=== PATIENT | female | born 1950 | race Caucasian/White ===

== ENCOUNTER 2016-07-06 16:02 | Emergency (ER) | payer MEDICARE, OTHER ==
[~2016-07-06 16:02] MED LIST: /DULO30CA PO; /ESOM40CA PO; /RISE35TA PO; /WARF25TA OR; ACET65TA OR; AMIT10TA2 PO; COQ10 PO; Hydroxychloroquine PO; MAGN250T PO; Melatonin PO; PERC5TAB8 OR; SULF50TA PO; SUMA125TA PO; TYLENOL #3 PO; [UNRECOGNIZED DRUG - OTHER] PO; plaquenil
[2016-07-06] MEDS ORDERED: XANA0.25 PO (16:32)
[2016-07-06] MEDS ORDERED: LIPI10TA PO (16:32)
[2016-07-06] MEDS ORDERED: LIDO5DIS36 TD (16:32)
[2016-07-06] MEDS ORDERED: CALC600T57 PO (16:32)
[2016-07-06 17:24] LABS: BASO # 0.1 K/mm3 (0.0-0.2); BASO % 0.9 % (0.0-1.0); EOS # 0.2 K/mm3 (0.0-0.50); EOS % 1.5 % (0.0-3.0); LARGE UNSTAINED CELL # 0.2 K/mm3 (0.0-0.4); LARGE UNSTAINED CELL % 1.6 % (0.0-4.0); LYMPH % 19.9 % (24.0-44.0); MEAN CORPUSCULAR HEMOGLOBIN 28.6 pg (27.0-33.0); MEAN CORPUSCULAR HGB CONC 33.3 g/dl (32.0-36.5); MEAN CORPUSCULAR VOLUME 86.1 fl (80.0-96.0); MONO # 0.7 K/mm3 (0.0-0.8); MONO % 6.4 % (0.0-5.0); NEUTROPHILS # 7.2 K/mm3 (1.8-7.7); NEUTROPHILS % 69.7 % (36.0-66.0); PLATELET COUNT, AUTOMATED 300 k/mm3 (150-450); RED CELL DISTRIBUTION WIDTH 12.7 % (11.5-14.5); WHITE BLOOD COUNT 10.2 K/mm3 (4.0-10.0)
[2016-07-06 17:36] LABS: ANION GAP 7 MEQ/L (8-16); BLOOD UREA NITROGEN 14 MG/DL (7-18); CALCIUM LEVEL 8.9 MG/DL (8.8-10.2); CARBON DIOXIDE LEVEL 30 MEQ/L (21-32); CHLORIDE LEVEL 102 MEQ/L (98-107); CREATININE FOR GFR 0.95 MG/DL (0.55-1.02); GLOMERULAR FILTRATION RATE > 60.0 (>45); GLUCOSE, FASTING 108 MG/DL (80-110); SODIUM LEVEL 139 MEQ/L (136-145)
--- NOTE | 2016-07-06 18:27 | REP ---
Chest x-ray: Two views. History: Chest pain. Comparison study August 22, 2013. Findings: EKG monitoring electrodes overlie the chest. Heart is not enlarged. Pleural angles are sharp. There are orthopedic anchors in the right humeral head. Pulmonary vasculature is not increased. Impression: No active disease. Signed by Horacio Loaiza MD 07/06/2016 07:02 P
[2016-07-06 18:32] VITALS: BP 159/78
--- NOTE | 2016-07-07 19:50 | ECGEPIP ---
Stationary ECG Study [facility] - ED Test Date: 2016-07-06 Pat Name: MARY FELIZ Department: Room: - Gender: F Literacy Coordinator: rn : 1950 Requested By: Jasson Vaughan Order Number: [id number] Reading MD: Sandy Villalta Measurements Intervals [place] Rate: 86 P: 60 [place]: 175 QRS: -11 QRSD: 92 T: 47 QT: 368 QTc: 441 Interpretive Statements SINUS RHYTHM NSTTW ABNORMALITY NO PRIOR FOR COMPARISON Electronically Signed On 07-07-2016 19:49:58 EDT by Sandy Villalta
== END 2016-07-06 19:03 | disposition left against medical advice (07) ==
LOC: EDBD 16:02 → M ED 17:14
DX: R07.9 Chest pain, unspecified (principal)

== ENCOUNTER → 2017-01-07 | Outpatient (REF) | payer MEDICARE, OTHER ==
[~2017-01-07] MED LIST changes: +CALC600T57 PO; +LIDO5DIS41 TD; +LIPI10TA PO; +XANA0.25 PO
[2017-01-07 19:50] LABS: BLOOD UREA NITROGEN 13 MG/DL (7-18); CREATININE FOR GFR 0.97 MG/DL (0.55-1.02); GLOMERULAR FILTRATION RATE > 60.0 (>45)
== END ==
LOC: M LABDRAW1 16:52
PROVIDERS: ATTEND Orthopaedic Surgery
DX: M17.12 Unilateral primary osteoarthritis, left knee (principal)

== ENCOUNTER → 2017-08-02 | Outpatient (REF) | payer MEDICARE, OTHER ==
[2017-08-02 15:38] LABS: BASO # 0.1 10^3/uL (0.0-0.2); BASO % 1.4 % (0.0-1.0); EOS # 0.2 10^3/uL (0.0-0.50); EOS % 3.3 % (0.0-3.0); HEMATOCRIT 41.1 % (36.0-47.0); HEMOGLOBIN 13.5 g/dl (12.0-15.5); IMMATURE GRANULOCYTE % 0.5 % (0-3.0); LYMPH # 1.7 10^3/uL (1.5-4.5); LYMPH % 26.9 % (24.0-44.0); MEAN CORPUSCULAR HEMOGLOBIN 28.7 pg (27.0-33.0); MEAN CORPUSCULAR HGB CONC 32.8 g/dl (32.0-36.5); MEAN CORPUSCULAR VOLUME 87.3 fl (80.0-96.0); MONO # 0.5 10^3/uL (0.0-0.8); MONO % 7.8 % (0.0-5.0); NEUTROPHILS # 3.8 10^3/uL (1.8-7.7); NEUTROPHILS % 60.1 % (36.0-66.0); PLATELET COUNT, AUTOMATED 293 10^3/uL (150-450); RED BLOOD COUNT 4.71 10^6/uL (4.00-5.40); RED CELL DISTRIBUTION WIDTH 13.5 % (11.5-14.5); WHITE BLOOD COUNT 6.3 10^3/uL (4.0-10.0)
[2017-08-02 15:44] LABS: C REACTIVE PROTEIN QUANTITATIV 0.44 MG/DL (0.00-0.30)
[2017-08-02 16:12] LABS: ERYTHROCYTE SEDIMENTATION RATE 36 mm/hr (0-30)
== END ==
LOC: M LABDRAW1 15:25
DX: M25.562 Pain in left knee (principal)
CPT/HCPCS: 86140

== ENCOUNTER → 2019-07-16 | Outpatient (REF) | payer MEDICARE, OTHER ==
[~2019-07-16] MED LIST changes: -/DULO30CA PO; -/ESOM40CA PO; -/WARF25TA OR; +COUM1TAB18 OR; +CYMB1CAP5 PO; +NEXI1CAP3 PO
[2019-07-16 13:34] LABS: PLATELET COUNT, AUTOMATED 302 10^3/uL (150-450)
[2019-07-16 13:47] LABS: INR 1.13; PROTHROMBIN TIME 14.2 SECONDS (11.8-14.0)
== END ==
LOC: M LABDRAW1 11:25
PROVIDERS: ATTEND Physician Assistant
DX: Z01.812 Encounter for preprocedural laboratory examination (principal); D69.1 Qualitative platelet defects; M47.27 Other spondylosis with radiculopathy, lumbosacral region

== ENCOUNTER → 2019-10-02 | Outpatient (CLI) | payer MEDICARE, BC | LOC: M LABSMTC 11:36 | PROVIDERS: ATTEND Physical Medicine & Rehabilitation | DX: Z01.818 Encounter for other preprocedural examination (principal); Z11.59 Encounter for screening for other viral diseases; Z03.818 Encounter for observation for suspected exposure to other biological agents ruled out ==

== ENCOUNTER → 2020-06-01 | Outpatient (CLI) | payer MEDICARE, BC ==
--- NOTE | 2020-06-01 12:32 | REP ---
INDICATION: PAIN LT LEG, R/O DVT COMPARISON: None. TECHNIQUE: Real time compression and duplex Doppler interrogation of the left lower extremity deep venous system is performed. FINDINGS: The left common femoral, superficial femoral and popliteal veins are fully compressible with transducer pressure and demonstrate normal spontaneous and phasic flow, without evidence of deep venous thrombosis. IMPRESSION: No evidence of deep venous thrombosis of the left lower extremity femoral popliteal venous system. <Electronically signed by Norman Rivers > 06/01/20 [id number]
== END ==
LOC: M RAD 11:56
PROVIDERS: ATTEND Physician Assistant Surgical
DX: M79.662 Pain in left lower leg (principal)

== ENCOUNTER → 2020-08-01 | Outpatient (CLI) | payer MEDICARE, BC ==
--- NOTE | 2020-08-01 14:43 | REP ---
INDICATION: ABD FINDING OF LUNG. COMPARISON: Multiple the latest 07/20/2019 TECHNIQUE: Noncontrast enhanced helical technique FINDINGS: The mediastinum and pulmonary lacho are stable. There is no mass or adenopathy. There are no pleural or pericardial effusions. Diffuse low density has developed throughout the hepatic patent parenchyma since the last exam. The osseous structures are stable. Evaluation of the lung griggs shows no new abnormal nodule, mass, or opacity. There is mild cylindrical bronchiectasis. IMPRESSION: 1. Stable lung rads category 2 CT examination of the chest. 2. Fatty infiltration of the liver. <Electronically signed by Beau Darling > 08/01/20 [id number]
== END ==
LOC: M RAD 13:32
PROVIDERS: ATTEND Internal Medicine Pulmonary Disease
DX: J47.9 Bronchiectasis, uncomplicated (principal); K76.0 Fatty (change of) liver, not elsewhere classified

== ENCOUNTER → 2022-02-09 | Outpatient (CLI) | payer MEDICARE, BC ==
[2022-02-09 12:33] LABS: HEMATOCRIT 40.9 % (36.0-47.0); HEMOGLOBIN 13.3 g/dl (12.0-15.5); MEAN CORPUSCULAR HEMOGLOBIN 29.4 pg (27.0-33.0); MEAN CORPUSCULAR HGB CONC 32.5 g/dl (32.0-36.5); MEAN CORPUSCULAR VOLUME 90.5 fl (80.0-96.0); PLATELET COUNT, AUTOMATED 236 10^3/uL (150-450); RED BLOOD COUNT 4.52 10^6/uL (4.00-5.40); WHITE BLOOD COUNT 7.4 10^3/uL (4.0-10.0)
[2022-02-09 12:53] LABS: INR 0.99; PROTHROMBIN TIME 13.3 SECONDS (12.5-14.5)
[2022-02-09 13:08] LABS: ERYTHROCYTE SEDIMENTATION RATE 29 mm/hr (0-30)
[2022-02-09 13:12] LABS: ALBUMIN 3.4 GM/DL (3.2-5.2); ALT/SGPT 27 U/L (12-78); BILIRUBIN,TOTAL 0.7 MG/DL (0.2-1.0); BLOOD UREA NITROGEN 11 MG/DL (7-18); CALCIUM LEVEL 9.1 MG/DL (8.8-10.2); CARBON DIOXIDE LEVEL 32 MEQ/L (21-32); CHLORIDE LEVEL 105 MEQ/L (98-107); CREATININE FOR GFR 0.89 MG/DL (0.55-1.30); GLOMERULAR FILTRATION RATE > 60.0 (>39); GLUCOSE, FASTING 108 MG/DL (70-100); POTASSIUM SERUM 4.3 MEQ/L (3.5-5.1); SODIUM LEVEL 140 MEQ/L (136-145); TOTAL PROTEIN 6.6 GM/DL (6.4-8.2)
== END ==
LOC: M RAD 11:16
PROVIDERS: ATTEND Orthopaedic Surgery
DX: M17.12 Unilateral primary osteoarthritis, left knee (principal); I70.0 Atherosclerosis of aorta; R94.31 Abnormal electrocardiogram [ECG] [EKG]

== ENCOUNTER → 2022-12-10 | Outpatient (CLI) | payer MEDICARE, BC ==
[2022-12-10 14:13] LABS: BASO # 0.1 10^3/uL (0.0-0.2); BASO % 1.4 % (0.0-1.0); EOS # 0.2 10^3/uL (0.0-0.5); EOS % 3.1 % (0.0-3.0); HEMATOCRIT 42.5 % (36.0-47.0); HEMOGLOBIN 13.2 g/dl (12.0-15.5); LYMPH % 30.9 % (24.0-44.0); MEAN CORPUSCULAR HEMOGLOBIN 28.1 pg (27.0-33.0); MEAN CORPUSCULAR HGB CONC 31.1 g/dl (32.0-36.5); MEAN CORPUSCULAR VOLUME 90.4 fl (80.0-96.0); MONO # 0.5 10^3/uL (0.0-0.8); MONO % 7.8 % (2.0-8.0); NEUTROPHILS # 3.6 10^3/uL (1.5-8.5); NEUTROPHILS % 56.3 % (36.0-66.0); PLATELET COUNT, AUTOMATED 264 10^3/uL (150-450); WHITE BLOOD COUNT 6.4 10^3/uL (4.0-10.0)
[2022-12-10 14:49] LABS: RHEUMATOID FACTOR QUANT < 3.5 IU/ML (<14)
[2022-12-10 14:51] LABS: ERYTHROCYTE SEDIMENTATION RATE 39 mm/hr (0-30)
[2022-12-11 13:08] LABS: ANTINUCLEAR ANTIBODIES DIRECT Negative (Negative)
== END ==
LOC: M PLALAB 11:20
PROVIDERS: ATTEND Orthopaedic Surgery
DX: M70.62 Trochanteric bursitis, left hip (principal); Z96.652 Presence of left artificial knee joint; M25.552 Pain in left hip

== ENCOUNTER 2023-06-10 08:34 | Day surgery (SDC) | payer MEDICARE, BC ==
[~2023-06-10] VITALS: Ht 170.2 cm; Wt 97.5 kg
[~2023-06-10 08:34] MED LIST changes: +ACET650T61 PO; +AMIT10TA7 PO; +DULO1CAP5 PO; +ESOM40CA35 PO; +FAMO40TA3 PO; +LEVO75TA4 PO; +OXYC1TAB23 PO; +RA M500C PO; +TIZA10TA PO; +TURM500C PO
[2023-06-10] MEDS ORDERED: propofoL 200 MG/20 ML VIAL As Ordered ONE (08:48)
[2023-06-10] MEDS ORDERED: LIDOCAINE 2% 100MG/5ML SDV (FOR ANES.) As Ordered ONE (08:48)
[2023-06-10] MEDS ORDERED: ROCURONIUM BROMIDE 50MG/5ML VIAL As Ordered ONE (08:49)
[2023-06-10] MEDS ORDERED: SUGAMMADEX SODIUM 500 MG/5 ML VIAL (BRIDION) As Ordered ONE (09:05)
[2023-06-10] MEDS ORDERED: ONDANSETRON 4MG 2ML VIAL As Ordered ONE (09:05)
[2023-06-10] MEDS ORDERED: KETOROLAC 60MG 2ML VIAL As Ordered ONE (09:05)
[2023-06-10] MEDS ORDERED: ACETAMINOPHEN 1000MG 100ML IV BAG As Ordered ONE (09:06)
[2023-06-10] MEDS ORDERED: fentaNYL 100 MCG/2 ML INJECTION As Ordered ONE (09:07)
[2023-06-10] MEDS ORDERED: MIDAZOLAM INJ 2MG/2ML VIAL As Ordered ONE (09:07)
[2023-06-10] MEDS ORDERED: TRIA1CR80 (09:08)
[2023-06-10] MEDS ORDERED: HYDR-3363 (09:08)
[2023-06-10] MEDS: CelecoXIB 400 MG CAP PO ONE (09:40)
[2023-06-10] MEDS: LR 1,000 ML IV SCH (09:41)
[2023-06-10] MEDS: ceFAZolin SOD 2 GM in IV 1 EA IV ONE (09:48)
[2023-06-10] MEDS ORDERED: hydrALAZINE 20MG/ML 1ML VIAL As Ordered ONE (10:44)
[2023-06-10] MEDS ORDERED: LABETALOL 100MG/20ML VIAL As Ordered ONE (10:46)
[2023-06-10] MEDS: LIDOCAINE 1% SDV 30ML VIAL As Ordered ONE (12:15)
[2023-06-10] MEDS ORDERED: LR 1,000 ML IV SCH (12:25)
[2023-06-10] MEDS ORDERED: fentaNYL 100 MCG/2 ML INJECTION IV PRN (12:25)
[2023-06-10] MEDS: ONDANSETRON 4MG 2ML VIAL IV PRN (12:59)
[2023-06-10] MEDS: oxyCODONE 5MG TAB PO PRN (13:00)
[2023-06-10] MEDS: HYDROMORPHONE HCL 0.5 MG/ 0.5 ML SYRINGE IV PRN (13:00)
[2023-06-10] MEDS ORDERED: NORCO, ANEXSIA 5/325MG TABLET (HYDROcodone/ACETAMINOPHEN) PO PRN ×2 (14:05)
[2023-06-10 14:07] VITALS: BP 141/69; TEMP 97.6; O2SAT 97
[2023-06-10] MEDS ORDERED: KETOROLAC 30 MG/ML 1ML VIAL IV SCH (15:00)
== END 2023-06-10 15:05 | disposition home or self-care (01) ==
LOC: M SDC 08:34
PROVIDERS: ATTEND Surgery
DX: K42.9 Umbilical hernia without obstruction or gangrene (principal); M62.08 Separation of muscle (nontraumatic), other site; E78.5 Hyperlipidemia, unspecified; G43.909 Migraine, unspecified, not intractable, without status migrainosus; E03.9 Hypothyroidism, unspecified; E66.9 Obesity, unspecified; M81.0 Age-related osteoporosis without current pathological fracture; K21.9 Gastro-esophageal reflux disease without esophagitis; F41.9 Anxiety disorder, unspecified; F32.9 Major depressive disorder, single episode, unspecified; Z79.899 Other long term (current) drug therapy
CPT/HCPCS: 17999; 49593; C1781; C9290; J0131; J0360; J0665; J0690; J1100; J1170; J1885; J1920; J2250; J2405; J3010; S2900